=== PATIENT | female | born 1945 | race Caucasian/White ===

== ENCOUNTER 2016-10-15 22:30 | Emergency (ER) | payer MEDICARE, OTHER ==
[~2016-10-15] VITALS: Ht 165.1 cm; Wt 104.3 kg
[~2016-10-15 22:30] MED LIST: EPINEPHrine SYRINGE 1 MG/10 ML SYRINGE ONE
--- NOTE | 2016-10-16 02:03 | PHYS DOC ---
Past Medical History Past Medical History: COPD, Hypertension, [place], Other Additional Past Medical Histor: MAC INFECTION, ARTERIAL BLEED IN LUNG SEPTEMBER 10, 2016 Past Surgical History: Cholecystectomy, Pacemaker Drug Use: None Adult General Chief Complaint Chief Complaint: CPR/FULL ARREST HPI HPI Patient is a 71 year old female who brought in by EMS after being a CODE BLUE. According to the she was eating ice cream and since started coughing up some blood. He reports that he called EMS secondary to her not breathing well and not having a pulse. Upon arrival by EMS ACLS was initiated. Patient was given epinephrine as well as CPR. Airway was not able to be established secondary to the massive amounts of blood noted in the airway and inability to locate the cords. Patient arrived to the ER approximately 45 minutes after resuscitation initiated. Per EMS patient has remained asystolic despite multiple rounds of epinephrine. Upon arrival to the ER ACLS was resumed. Patient was intubated in the ER by the ER physician without any difficulty. Patient remained asystolic pulseless and apneic throughout the entirety of the code. I had a long discussion with the family and the family wishes to be at the bedside during the code. I did discuss with the family including the and the daughter that we will need to cease resuscitative efforts as I believe at this point resuscitation will be futile. Family was at bedside. CPR had been resumed in the ED. After several rounds of epinephrine and ACLS patient was pronounced at 2244. Patient unresponsive, pupils no-reactive to light, no heart sounds for one minute; no breath sounds for one minute; no spontaneous breathing Critical care time was 35 minutes exclusive of procedures. Indication: Respiratory failure Consent: Unable to give consent due to emergent nature. Medications Used: None Procedure: The patient was placed in the appropriate position. Intubation was performed cords visualized, 7.5 endotracheal tube inserted through the cords. Cords was secured at 24 cm to lip.. Initial confirmation of placement included bilateral breath sounds, tube fogging, adequate chest rise, adequate pulse oximetry reading. End-tidal CO2 confirmation. Complications: none. HEENT: Pupils fixed and dilated upon arrival to the ER. Cardiovascular: asystolic Lungs & Thorax: apneic, Abdomen: distended Skin: Warm, dry, Extremities: cyanosis, Neurologic: gcs 3. Blood noted in the cords around the cords and the mouth. Upon intubation there was blood bubbling from her airway and to records. Assessment and plan Cardiac arrest. Etiology unclear however it appears that the patient had massive hemoptysis prior to this occurring. Patient does have a history recently for cauterization of vessels and her lungs per the family. Patient does have a history of mac complex cavitary lesion that appears to have possibly grown into a arterial vessel that need cauterization to her admission at a couple weeks ago. Family reports that she's had a couple episodes of blood-tinged sputum however tonight after eating ice cream she had massive hemoptysis and respiratory and cardiac arrest. Patient was coded in the ED. Patient was intubated in the ER by Dr. Uribe. Patient was pronounced at 2244 with family at bedside. I have spoken to Dr. Elinor Rich practitioner and informed him of her recent demise. He is not clear as to what to do with significant. We have paged the [facility] director global medical affairs's for further instructions. EKG EKG [] Radiology/Procedures Radiology/Procedures [] Course & Med Decision Making Course & Med Decision Making Pertinent Labs and Imaging studies reviewed. (See chart for details) [] Dragon Disclaimer Dragon Disclaimer This electronic medical record was generated, in whole or in part, using a voice recognition dictation system. Departure Departure Referrals: UNKNOWN PCP NAME (PCP) LINNEA URIBE MD Oct 16, 2016 02:03
== END 2016-10-16 03:39 | disposition expired ==
LOC: ER 22:30
DX: I46.9 Cardiac arrest, cause unspecified (principal); I10 Essential (primary) hypertension; J44.9 Chronic obstructive pulmonary disease, unspecified; I25.2 Old myocardial infarction; Z90.49 Acquired absence of other specified parts of digestive tract; Z95.0 Presence of cardiac pacemaker
CPT/HCPCS: 31500; 92950; 99291; J0171